=== PATIENT | male | born 1995 | race Two or more races ===

== ENCOUNTER 2020-09-21 15:40 | Inpatient (IN) | payer OTHER ==
[~2020-09-21] VITALS: Ht 157.5 cm; Wt 71.2 kg
[2020-09-21] MEDS ORDERED: SODIUM CHLORIDE 0.9% 1,000 ML IVB ONE (15:45)
[2020-09-21] MEDS ORDERED: MORPHINE SULFATE 4 MG/ML SYR/VIAL IV ONE (16:00)
[2020-09-21] MEDS ORDERED: ONDANSETRON HCL 4 MG/2 ML VIAL IV ONE (16:00)
[2020-09-21 16:02] LABS: Basophils # (auto) 0 10 ^3/uL (0-0.2); Nucleated Red Blood Cells % 0.1 %
[2020-09-21 16:04] LABS: Basophils % (auto) 0.2 % (0.0-2.0); Eosinophils # (auto) 0.1 10 ^3/uL (0-0.8); Eosinophils % (auto) 0.2 % (0.0-7.0); Hematocrit 48.9 % (41.0-53.0); Lymphocytes # (auto) 1.3 10 ^3/uL (0.4-5.4); Lymphocytes % (auto) 6.2 % (10.0-50.0); Mean Corpuscular Hemoglobin 28.6 pg (28.0-32.0); Mean Corpuscular Hgb Conc. 34.8 g/dL (32.0-36.0); Mean Corpuscular Volume 82.2 fL (80.0-100.0); Monocytes # (auto) 1.2 10 ^3/uL (0-1.3); Monocytes % (auto) 5.4 % (0.0-12.0); Neutrophils # (auto) 18.7 10 ^3/uL (1.6-8.6); Red Blood Cells 5.95 10^6/uL (4.5-5.90); Red Cell Distribution Width 12.9 % (11.8-14.3); White Blood Cell 21.3 10^3/uL (4.4-10.8)
[2020-09-21 16:16] LABS: Calcium 9.6 mg/dL (8.5-10.1); Potassium 3.4 mmol/L (3.5-5.1)
[2020-09-21 16:19] LABS: BUN/Creatinine Ratio 10.3
[2020-09-21 16:21] LABS: Bilirubin, Total 0.6 mg/dL (0.2-1.0)
[2020-09-21] MEDS ORDERED: SOD CHL 0.9%/ KCL 40MEQ 1,000 ML IV ONE (16:45)
[2020-09-21] MEDS ORDERED: PIPERACILLIN-TAZOB 3.375GM 100 ML IV ONE (16:45)
[2020-09-21 16:51] LABS: INR 0.99 (0.9-1.15); Partial Thromboplastin Time 26.8 sec (23.0-31.2)
[2020-09-21] MEDS ORDERED: SUCCINYLCHOLINE CHLORIDE 20 MG/ML 10ML VIAL IV ONE (16:56)
[2020-09-21] MEDS ORDERED: LIDOCAINE W/ EPINEPHRINE 1% 20ML VIAL ONE (17:01)
[2020-09-21] MEDS ORDERED: fentaNYL CITRATE 100 MCG/2 ML VL ONE ×7 (17:02→20:32)
[2020-09-21] MEDS ORDERED: MEPERIDINE HCL (25 MG/ML) 1ML VIAL ONE (17:02)
[2020-09-21] MEDS ORDERED: NEOSTIGMINE 1 MG/ML INJ (10mg/10ML VIAL) ONE (17:03)
[2020-09-21] MEDS ORDERED: ONDANSETRON HCL 4 MG/2 ML VIAL ONE (17:03)
[2020-09-21] MEDS ORDERED: PROPOFOL 10 MG/ML 20 ML IV ONE (17:03)
[2020-09-21] MEDS ORDERED: SODIUM CHLORIDE LOCK 10 ML ONE (17:03)
[2020-09-21] MEDS ORDERED: MIDAZOLAM HCL 2MG/2ML 2ml VIAL (1mg/ml) ONE (17:03)
[2020-09-21] MEDS ORDERED: GLYCOPYRROLATE 0.2 MG/ML 1ML VIAL ONE (17:03)
[2020-09-21] MEDS ORDERED: ROCURONIUM 10MG/ML 10ML VIAL IV ONE ×6 (17:03→23:18)
[2020-09-21] MEDS ORDERED: ceFAZolin 1GM/50ML 50 ML IV ONE (17:08)
[2020-09-21] MEDS ORDERED: metroNIDAZOLE 500MG/100ML 100 ML IV ONE (17:08)
[2020-09-21] MEDS ORDERED: BUPIVACAINE HCL 0.25% P/F 10 ML VIAL ONE (17:50)
[2020-09-21] MEDS ORDERED: BUPIVACAINE 0.25% INJ 50ML VIAL ONE (17:52)
[2020-09-21] MEDS ORDERED: GELATIN 1 SPONGE SIZE 50 TOP ONE (18:19)
[2020-09-21] MEDS ORDERED: GELATIN 1 SPONGE SIZE 100 TOP ONE (18:19)
[2020-09-21] MEDS ORDERED: THROMBIN (BOVINE) 5000 UNIT SOL VIAL ONE (18:20)
[2020-09-21] MEDS ORDERED: ACETAMINOPHEN IV 100 ML IV ONE (18:51)
[2020-09-21] MEDS ORDERED: HYDROmorphone HCL 2 MG/ML VL ONE ×3 (19:12→22:50)
[2020-09-21] MEDS: fentaNYL Drip 2500mCg/250mlNS 250 ML IV SCH (20:15)
[2020-09-21] MEDS: MIDAZOLAM DRIP 50 mg/50mL 50 ML IV SCH (20:15)
[2020-09-21] MEDS ORDERED: HYDROmorphone HCL 2 MG/ML VL IV ONE (20:15)
[2020-09-21 20:19] VITALS: BP 121/72
[2020-09-21] MEDS ORDERED: MIDAZOLAM DRIP 50 mg/50mL 50 ML IV ONE (20:30)
[2020-09-21] MEDS ORDERED: ESMOLOL HCL 10 ML IV ONE ×2 (20:32→22:58)
[2020-09-21] MEDS ORDERED: SODIUM BICARBONATE 8.4 % INJ 50ML VIAL IV ONE ×3 (20:51→23:28)
[2020-09-21 21:50] LABS: Basophils # (auto) 0.1 10 ^3/uL (0-0.2); Basophils % (auto) 0.2 % (0.0-2.0); Eosinophils # (auto) 0 10 ^3/uL (0-0.8); Hematocrit 42.3 % (41.0-53.0); Hemoglobin 14.3 g/dL (13.5-17.5); Lymphocytes % (auto) 7.5 % (10.0-50.0); Mean Corpuscular Hemoglobin 28.7 pg (28.0-32.0); Mean Corpuscular Hgb Conc. 33.9 g/dL (32.0-36.0); Mean Corpuscular Volume 84.6 fL (80.0-100.0); Monocytes # (auto) 1.8 10 ^3/uL (0-1.3); Neutrophils # (auto) 22.3 10 ^3/uL (1.6-8.6); Neutrophils % (auto) 85.3 % (37.0-80.0); Red Cell Distribution Width 13.1 % (11.8-14.3); White Blood Cell 26.1 10^3/uL (4.4-10.8)
[2020-09-21] MEDS ORDERED: metroNIDAZOLE 500MG/100ML 100 ML IV SCH (22:00)
[2020-09-21 22:21] LABS: Calcium 7.1 mg/dL (8.5-10.1); INR 1.08 (0.9-1.15); Partial Thromboplastin Time 23.1 sec (23.0-31.2); Potassium 3.3 mmol/L (3.5-5.1)
[2020-09-21] MEDS ORDERED: ALBUMIN 5% 250 ML IV ONE ×2 (22:21→22:30)
[2020-09-21 22:40] VITALS: BP 125/62
[2020-09-21] MEDS: ceFAZolin 1GM/50ML 50 ML IV SCH (22:42)
[2020-09-21] MEDS: D5W/SOD CHL 0.45%/KCL 20MEQ 1,000 ML IV SCH (22:42)
[2020-09-21] MEDS ORDERED: CALCIUM CHL(10%) 100MG/ML 10ML VIAL IV ONE (22:49)
[2020-09-21] MEDS: HYDROmorphone HCL 2 MG/ML VL IV SCH (23:03)
[2020-09-21] MEDS ORDERED: MORPHINE SULF(PF) 0.5MG/ML 10ML VIAL ONE (23:18)
[2020-09-21] MEDS: metroNIDAZOLE 500MG/100ML 100 ML IV SCH (23:23)
[2020-09-21 23:55] VITALS: BP 125/62
[2020-09-21 23:59] LABS: Hematocrit 41.3 % (41.0-53.0); Hemoglobin 14.1 g/dL (13.5-17.5)
[2020-09-22] VITALS (87 sets, daily range): BP systolic 84–214; BP diastolic 45–300
[2020-09-22] MEDS ORDERED: fentaNYL CITRATE 100 MCG/2 ML VL ONE (00:19)
[2020-09-22] MEDS ORDERED: ROCURONIUM 10MG/ML 10ML VIAL IV ONE (00:20)
[2020-09-22] MEDS: HYDROmorphone HCL 2 MG/ML VL IV SCH ×8 (02:00→14:00)
[2020-09-22] MEDS: MIDAZOLAM DRIP 50 mg/50mL 50 ML IV SCH ×3 (02:20→10:03)
[2020-09-22 04:58] LABS: Basophils # (auto) 0 10 ^3/uL (0-0.2); Basophils % (auto) 0.1 % (0.0-2.0); Eosinophils # (auto) 0 10 ^3/uL (0-0.8); Hematocrit 41.1 % (41.0-53.0); Hemoglobin 14.4 g/dL (13.5-17.5); Lymphocytes % (auto) 5.4 % (10.0-50.0); Mean Corpuscular Hemoglobin 29.6 pg (28.0-32.0); Mean Corpuscular Hgb Conc. 35.1 g/dL (32.0-36.0); Mean Corpuscular Volume 84.2 fL (80.0-100.0); Monocytes # (auto) 1.5 10 ^3/uL (0-1.3); Monocytes % (auto) 8.1 % (0.0-12.0); Neutrophils # (auto) 16.4 10 ^3/uL (1.6-8.6); Neutrophils % (auto) 86.4 % (37.0-80.0); Red Blood Cells 4.88 10^6/uL (4.5-5.90)
[2020-09-22 05:22] LABS: Potassium 4.6 mmol/L (3.5-5.1)
[2020-09-22 05:27] LABS: BUN/Creatinine Ratio 10.6; Total Protein 5.8 g/dL (6.4-8.2)
[2020-09-22] MEDS: ceFAZolin 1GM/50ML 50 ML IV SCH ×2 (05:41→14:13)
[2020-09-22] MEDS: metroNIDAZOLE 500MG/100ML 100 ML IV SCH ×3 (05:57→21:58)
[2020-09-22] MEDS: D5W/SOD CHL 0.45%/KCL 20MEQ 1,000 ML IV SCH ×2 (07:00→10:32)
[2020-09-22] MEDS: cefTRIAXone 1GM/50ML D5W 50 ML IV SCH (10:02)
[2020-09-22] MEDS: PANTOPRAZOLE 40 MG/10 ML VIAL INJ IV SCH (10:02)
[2020-09-22] MEDS: fentaNYL Drip 2500mCg/250mlNS 250 ML IV SCH (12:06)
[2020-09-22] MEDS ORDERED: ACETAMINOPHEN 325 MG TAB PO PRN (13:00)
[2020-09-22] MEDS: HYDROmorphone HCL 2 MG/ML VL IV PRN ×2 (15:31→20:38)
[2020-09-22] MEDS: SODIUM CHLORIDE 0.9% 1,000 ML IV SCH (16:49)
[2020-09-22] MEDS: MORPHINE SULF INJ 2 MG/ML SYRINGE 1ML IV PRN (20:58)
[2020-09-22] MEDS ORDERED: LORazepam 2MG/ML-1ML VIAL IV PRN (21:00)
[2020-09-22] MEDS: LABETALOL HCL 5 MG/ML 4ML SYRINGE IV PRN (21:57)
[2020-09-23] VITALS (18 sets, daily range): BP systolic 117–162; BP diastolic 68–86
[2020-09-23] MEDS: MORPHINE SULF INJ 2 MG/ML SYRINGE 1ML IV PRN ×6 (00:51→21:03)
[2020-09-23] MEDS: SODIUM CHLORIDE 0.9% 1,000 ML IV SCH ×3 (01:32→17:00)
[2020-09-23] MEDS: LABETALOL HCL 5 MG/ML 4ML SYRINGE IV PRN (02:59)
[2020-09-23] MEDS: ONDANSETRON HCL 4 MG/2 ML VIAL IV PRN (03:51)
[2020-09-23 04:45] LABS: Basophils # (auto) 0 10 ^3/uL (0-0.2); Basophils % (auto) 0.4 % (0.0-2.0); Eosinophils # (auto) 0 10 ^3/uL (0-0.8); Hematocrit 37.1 % (41.0-53.0); Hemoglobin 13.2 g/dL (13.5-17.5); Lymphocytes # (auto) 0.7 10 ^3/uL (0.4-5.4); Mean Corpuscular Hemoglobin 29.5 pg (28.0-32.0); Mean Corpuscular Hgb Conc. 35.7 g/dL (32.0-36.0); Mean Corpuscular Volume 82.6 fL (80.0-100.0); Monocytes # (auto) 0.8 10 ^3/uL (0-1.3); Monocytes % (auto) 8.8 % (0.0-12.0); Neutrophils # (auto) 7.7 10 ^3/uL (1.6-8.6); Neutrophils % (auto) 82.8 % (37.0-80.0); Nucleated Red Blood Cells % 0.1 %; Red Blood Cells 4.49 10^6/uL (4.5-5.90); Red Cell Distribution Width 13.3 % (11.8-14.3); White Blood Cell 9.3 10^3/uL (4.4-10.8)
[2020-09-23 05:03] LABS: Calcium 7.3 mg/dL (8.5-10.1); Potassium 3.4 mmol/L (3.5-5.1)
[2020-09-23 05:08] LABS: Bilirubin, Total 3.4 mg/dL (0.2-1.0); Total Protein 5.9 g/dL (6.4-8.2)
[2020-09-23] MEDS: metroNIDAZOLE 500MG/100ML 100 ML IV SCH ×3 (06:30→21:03)
[2020-09-23] MEDS: PANTOPRAZOLE 40 MG/10 ML VIAL INJ IV SCH (09:35)
[2020-09-23] MEDS: cefTRIAXone 1GM/50ML D5W 50 ML IV SCH (09:35)
[2020-09-23] MEDS ORDERED: POTASSIUM CHLORIDE 20 MEQ, LIDOCAINE 1% (LOCAL ANESTH.) 2 ML in SODIUM CHL 0.9% 100 ML IV ONE (10:00)
[2020-09-23] MEDS ORDERED: LABETALOL HCL 5 MG/ML 4ML SYRINGE IV PRN (10:00)
[2020-09-23] MEDS ORDERED: LORazepam 2MG/ML-1ML VIAL IV PRN (15:00)
[2020-09-24] MEDS: SODIUM CHLORIDE 0.9% 1,000 ML IV SCH ×3 (04:05→10:00)
[2020-09-24 04:38] VITALS: BP 138/85
[2020-09-24 05:50] LABS: Basophils # (auto) 0.1 10 ^3/uL (0-0.2); Basophils % (auto) 1.7 % (0.0-2.0); Eosinophils # (auto) 0.1 10 ^3/uL (0-0.8); Eosinophils % (auto) 1.2 % (0.0-7.0); Hematocrit 42.7 % (41.0-53.0); Hemoglobin 15.3 g/dL (13.5-17.5); Lymphocytes # (auto) 1.2 10 ^3/uL (0.4-5.4); Lymphocytes % (auto) 15.9 % (10.0-50.0); Mean Corpuscular Hemoglobin 29.6 pg (28.0-32.0); Mean Corpuscular Hgb Conc. 35.8 g/dL (32.0-36.0); Mean Corpuscular Volume 82.7 fL (80.0-100.0); Monocytes # (auto) 1.1 10 ^3/uL (0-1.3); Monocytes % (auto) 13.9 % (0.0-12.0); Neutrophils # (auto) 5.1 10 ^3/uL (1.6-8.6); Neutrophils % (auto) 67.3 % (37.0-80.0); Nucleated Red Blood Cells % 0.1 %; Red Blood Cells 5.17 10^6/uL (4.5-5.90); Red Cell Distribution Width 13.4 % (11.8-14.3); White Blood Cell 7.6 10^3/uL (4.4-10.8)
[2020-09-24] MEDS: metroNIDAZOLE 500MG/100ML 100 ML IV SCH ×3 (05:52→21:04)
[2020-09-24 05:53] LABS: Albumin 3.1 g/dL (3.4-5.0); Potassium 4.2 mmol/L (3.5-5.1)
[2020-09-24 05:57] LABS: BUN/Creatinine Ratio 13.3; Bilirubin, Total 2.3 mg/dL (0.2-1.0)
[2020-09-24] MEDS: cefTRIAXone 1GM/50ML D5W 50 ML IV SCH (08:41)
[2020-09-24 08:48] VITALS: BP 138/87
[2020-09-24] MEDS ORDERED: GASTROGRAFIN 120 ML SOL ONE (08:53)
[2020-09-24] MEDS: PANTOPRAZOLE 40 MG/10 ML VIAL INJ IV SCH (10:00)
[2020-09-24 13:00] VITALS: BP 137/83
[2020-09-24] MEDS: MORPHINE SULF INJ 2 MG/ML SYRINGE 1ML IV PRN ×2 (13:15→21:04)
[2020-09-24 17:00] VITALS: BP 143/84
[2020-09-24 22:00] VITALS: BP 138/86
[2020-09-24] MEDS: ONDANSETRON HCL 4 MG/2 ML VIAL IV PRN (23:30)
[2020-09-24] MEDS: LORazepam 2MG/ML-1ML VIAL IV PRN (23:30)
[2020-09-25] MEDS: SODIUM CHLORIDE 0.9% 1,000 ML IV SCH ×4 (03:25→13:30)
[2020-09-25] MEDS: MORPHINE SULF INJ 2 MG/ML SYRINGE 1ML IV PRN (04:08)
[2020-09-25 05:00] VITALS: BP 136/77
[2020-09-25] MEDS: metroNIDAZOLE 500MG/100ML 100 ML IV SCH ×3 (06:24→21:56)
[2020-09-25 07:14] LABS: Potassium 3.7 mmol/L (3.5-5.1)
[2020-09-25 07:19] LABS: Albumin 3.4 g/dL (3.4-5.0); BUN/Creatinine Ratio 21.5; Calcium 8.3 mg/dL (8.5-10.1)
[2020-09-25 07:21] LABS: Bilirubin, Total 1.1 mg/dL (0.2-1.0); Total Protein 7.2 g/dL (6.4-8.2)
[2020-09-25 07:37] LABS: Basophils # (auto) 0.1 10 ^3/uL (0-0.2); Basophils % (auto) 0.7 % (0.0-2.0); Eosinophils # (auto) 0.1 10 ^3/uL (0-0.8); Eosinophils % (auto) 0.7 % (0.0-7.0); Hematocrit 42.3 % (41.0-53.0); Hemoglobin 15.2 g/dL (13.5-17.5); Mean Corpuscular Hemoglobin 30.1 pg (28.0-32.0); Mean Corpuscular Hgb Conc. 36.1 g/dL (32.0-36.0); Mean Corpuscular Volume 83.5 fL (80.0-100.0); Monocytes # (auto) 1.1 10 ^3/uL (0-1.3); Monocytes % (auto) 12.2 % (0.0-12.0); Neutrophils # (auto) 6.4 10 ^3/uL (1.6-8.6); Neutrophils % (auto) 74.4 % (37.0-80.0); Nucleated Red Blood Cells % 0.2 %; Red Blood Cells 5.06 10^6/uL (4.5-5.90); Red Cell Distribution Width 13.5 % (11.8-14.3); White Blood Cell 8.6 10^3/uL (4.4-10.8)
[2020-09-25 08:39] VITALS: BP 137/85
[2020-09-25] MEDS: PANTOPRAZOLE 40 MG/10 ML VIAL INJ IV SCH (10:00)
[2020-09-25] MEDS: cefTRIAXone 1GM/50ML D5W 50 ML IV SCH (10:25)
[2020-09-25 13:29] VITALS: BP 142/80
[2020-09-25 16:20] VITALS: BP 137/78
[2020-09-25] MEDS: LORazepam 2MG/ML-1ML VIAL IV PRN ×2 (21:50→21:57)
[2020-09-25] MEDS: ONDANSETRON HCL 4 MG/2 ML VIAL IV PRN (23:07)
[2020-09-25 23:15] VITALS: BP 133/85
[2020-09-26] MEDS: MORPHINE SULF INJ 2 MG/ML SYRINGE 1ML IV PRN ×2 (00:10→04:40)
[2020-09-26] MEDS: metroNIDAZOLE 500MG/100ML 100 ML IV SCH ×3 (05:13→22:27)
[2020-09-26 05:18] VITALS: BP 136/73
[2020-09-26 05:22] LABS: Basophils # (auto) 0.1 10 ^3/uL (0-0.2); Basophils % (auto) 0.5 % (0.0-2.0); Eosinophils # (auto) 0.1 10 ^3/uL (0-0.8); Eosinophils % (auto) 0.5 % (0.0-7.0); Hematocrit 46.3 % (41.0-53.0); Hemoglobin 16.4 g/dL (13.5-17.5); Lymphocytes # (auto) 1.2 10 ^3/uL (0.4-5.4); Lymphocytes % (auto) 10.9 % (10.0-50.0); Mean Corpuscular Hemoglobin 29.3 pg (28.0-32.0); Mean Corpuscular Hgb Conc. 35.5 g/dL (32.0-36.0); Mean Corpuscular Volume 82.7 fL (80.0-100.0); Monocytes # (auto) 1.2 10 ^3/uL (0-1.3); Monocytes % (auto) 10.3 % (0.0-12.0); Neutrophils % (auto) 77.8 % (37.0-80.0); Nucleated Red Blood Cells % 0.1 %; Red Blood Cells 5.59 10^6/uL (4.5-5.90); Red Cell Distribution Width 13.2 % (11.8-14.3); White Blood Cell 11.5 10^3/uL (4.4-10.8)
[2020-09-26 05:40] LABS: Calcium 8.2 mg/dL (8.5-10.1); Potassium 3.8 mmol/L (3.5-5.1)
[2020-09-26 05:42] LABS: BUN/Creatinine Ratio 21.4
[2020-09-26 09:00] VITALS: BP 139/74
[2020-09-26] MEDS ORDERED: IOHEXOL 300 MG/ML 100ML BOTTLE IJ ONE (09:05)
[2020-09-26] MEDS ORDERED: OMNIPAQUE ORAL SOLN 500ml 12mg/ml PO ONE (09:05)
[2020-09-26] MEDS: cefTRIAXone 1GM/50ML D5W 50 ML IV SCH (12:30)
[2020-09-26] MEDS: ONDANSETRON HCL 4 MG/2 ML VIAL IV PRN (12:30)
[2020-09-26] MEDS: PANTOPRAZOLE 40 MG TAB PO SCH (12:30)
[2020-09-26 12:53] VITALS: BP 138/84
[2020-09-26] MEDS: SODIUM CHLORIDE 0.9% 1,000 ML IV SCH (14:17)
[2020-09-26 16:41] VITALS: BP 137/83
[2020-09-26 22:00] VITALS: BP 146/90
[2020-09-27] MEDS: SODIUM CHLORIDE 0.9% 1,000 ML IV SCH ×3 (03:51→22:53)
[2020-09-27 05:00] VITALS: BP 137/74
[2020-09-27] MEDS: metroNIDAZOLE 500MG/100ML 100 ML IV SCH ×3 (05:48→21:45)
[2020-09-27 09:00] VITALS: BP 137/81
[2020-09-27] MEDS: PANTOPRAZOLE 40 MG TAB PO SCH (09:07)
[2020-09-27] MEDS: cefTRIAXone 1GM/50ML D5W 50 ML IV SCH (09:07)
[2020-09-27 13:00] VITALS: BP 132/86
[2020-09-27 17:00] VITALS: BP 148/84
[2020-09-27 22:16] VITALS: BP 130/84
[2020-09-28 05:00] VITALS: BP 133/72
[2020-09-28 05:08] LABS: Basophils # (auto) 0.1 10 ^3/uL (0-0.2); Basophils % (auto) 0.7 % (0.0-2.0); Eosinophils # (auto) 0.2 10 ^3/uL (0-0.8); Hematocrit 42.4 % (41.0-53.0); Mean Corpuscular Hemoglobin 29.9 pg (28.0-32.0); Mean Corpuscular Hgb Conc. 35.4 g/dL (32.0-36.0); Mean Corpuscular Volume 84.6 fL (80.0-100.0); Monocytes # (auto) 1.1 10 ^3/uL (0-1.3); Monocytes % (auto) 10.7 % (0.0-12.0); Neutrophils # (auto) 6.7 10 ^3/uL (1.6-8.6); Neutrophils % (auto) 66.6 % (37.0-80.0); Nucleated Red Blood Cells % 0.1 %; Red Blood Cells 5.02 10^6/uL (4.5-5.90); Red Cell Distribution Width 13.3 % (11.8-14.3)
[2020-09-28] MEDS: metroNIDAZOLE 500MG/100ML 100 ML IV SCH ×2 (05:49→14:06)
[2020-09-28] MEDS: cefTRIAXone 1GM/50ML D5W 50 ML IV SCH (08:17)
[2020-09-28] MEDS: PANTOPRAZOLE 40 MG TAB PO SCH (08:18)
[2020-09-28 08:47] VITALS: BP 121/71
[2020-09-28 11:59] VITALS: BP 139/77
[2020-09-28 13:08] VITALS: BP 139/77
== END 2020-09-28 15:19 | disposition home or self-care (01) | DRG 710 ==
LOC: ER 15:40 → OVERFLOW 16:51 → DOU IN ICU 23:39 → TELE-WESTW 09-23 15:27 → WEST WING 09-23 15:28 → CENTRAL 09-23 18:43
PROVIDERS: ADMIT Nurse Practitioner Acute Care; ATTEND Internal Medicine
PROC: 0WJG4ZZ Inspection of Peritoneal Cavity, Percutaneous Endoscopic Approach (ICD-10-PCS; 2020-09-21)
PROC: 0DQA0ZZ Repair Jejunum, Open Approach (ICD-10-PCS; 2020-09-21)
PROC: 5A1935Z Respiratory Ventilation, Less than 24 Consecutive Hours (ICD-10-PCS; 2020-09-21)
PROC: 0BH17EZ Insertion of Endotracheal Airway into Trachea, Via Natural or Artificial Opening (ICD-10-PCS; 2020-09-21)
PROC: 30230N1 Transfusion of Nonautologous Red Blood Cells into Peripheral Vein, Open Approach (ICD-10-PCS; 2020-09-21)
PROC: 0DTJ0ZZ Resection of Appendix, Open Approach (ICD-10-PCS; principal; 2020-09-21 17:35)
DX: A41.9 Sepsis, unspecified organism (principal); J96.00 Acute respiratory failure, unspecified whether with hypoxia or hypercapnia; R63.0 Anorexia; K35.80 Unspecified acute appendicitis; Z53.31 Laparoscopic surgical procedure converted to open procedure; E66.9 Obesity, unspecified; Z68.29 Body mass index [BMI] 29.0-29.9, adult; Z20.822 Contact with and (suspected) exposure to COVID-19; E80.6 Other disorders of bilirubin metabolism; K91.61 Intraoperative hemorrhage and hematoma of a digestive system organ or structure complicating a digestive system procedure; Y83.8 Other surgical procedures as the cause of abnormal reaction of the patient, or of later complication, without mention of misadventure at the time of the procedure
CPT/HCPCS: 36415; 36600; 71045; 74018; 74176; 74177; 74250; 80048; 80053; 81001; 82805; 83690; 85014; 85018; 85025; 85610; 85730; 86850; 86900; 86901; 86920; 87070; 87081; 87205; 87426; 93005; 94002; 94003; 94640; 96361; 96374; 96375; 97116; 97163; 97530; C9113; G0378; J0131; J0330; J0690; J0696; J2001; J2250; J2405; J2704; J3490